=== PATIENT | female | born 1965 | race Two or more races ===

== ENCOUNTER → 2016-09-27 | Outpatient (CLI) | payer BC ==
[2016-09-27 07:23] LABS: Basophils # (auto) 0.1 uL; Basophils % (auto) 0.6 % (0.0-2.0); DEFINITIVE VIEW TRANSMISSION; Eosinophils # (auto) 0.8 uL; Eosinophils % (auto) 7.2 % (0.0-7.0); Hematocrit 42.4 % (36.0-46.0); Hemoglobin 14.1 g/dL (12.2-16.2); Lymphocytes # (auto) 2.4 uL; Lymphocytes % (auto) 21.3 % (10.0-50.0); Mean Corpuscular Hemoglobin 29.9 pg (28.0-32.0); Mean Corpuscular Hgb Conc. 33.2 g/dL (32.0-36.0); Mean Corpuscular Volume 90.1 fL (80.0-100.0); Mean Platelet Volume 8.9 fL (7.4-10.4); Monocytes # (auto) 0.8 uL; Monocytes % (auto) 7.2 % (0.0-12.0); Neutrophils # (auto) 7.2 uL; Neutrophils % (auto) 63.7 % (37.0-80.0); Platelet Count (auto) 343 10^3/uL (140-450); Red Cell Distribution Width 12.9 % (11.6-16.0); White Blood Cell 11.2 10^3/uL (4.4-10.8)
[2016-09-27 07:50] LABS: Albumin 3.3 g/dL (3.4-5.0); BUN/Creatinine Ratio 24.7; Bilirubin, Total 0.4 mg/dL (0.2-1.0); Calcium 8.7 mg/dL (8.5-10.1); Potassium 3.8 mmol/L (3.5-5.1); Total Protein 7.3 g/dL (6.4-8.2)
[2016-09-27 08:04] LABS: Urine Bilirubin Negative (Negative); Urine Blood 2+ /uL (Negative); Urine Color Yellow (Yellow); Urine Glucose Normal (Normal); Urine Ketone Negative (Negative); Urine Mucus FEW (None Seen); Urine Nitrite Negative (Negative); Urine RBC 3 /hpf (0 - 4); Urine Squamous Epithelial Cell FEW /hpf (<5); Urine Urobilinogen Normal (Negative)
== END | disposition home or self-care (01) ==
LOC: LAB 06:39
PROVIDERS: ATTEND Internal Medicine
DX: K21.9 Gastro-esophageal reflux disease without esophagitis (principal); M54.12 Radiculopathy, cervical region
CPT/HCPCS: 36415; 80053; 80061; 81001; 84439; 84443; 85025; 85652

== ENCOUNTER 2016-10-10 07:58 | Emergency (ER) | payer BC ==
[~2016-10-10] VITALS: Ht 160 cm; Wt 100.7 kg
[2016-10-10 08:47] VITALS: BP 142/77
== END 2016-10-10 09:19 | disposition home or self-care (01) ==
LOC: ER 07:58
DX: S83.92XA Sprain of unspecified site of left knee, initial encounter (principal); X58.XXXA Exposure to other specified factors, initial encounter; Y93.89 Activity, other specified; Y99.8 Other external cause status; Y92.89 Other specified places as the place of occurrence of the external cause

== ENCOUNTER → 2016-10-24 | Outpatient (CLI) | payer BC | END | disposition home or self-care (01) | LOC: LAB 13:30 | PROVIDERS: ATTEND Internal Medicine | DX: R20.0 Anesthesia of skin (principal) | CPT/HCPCS: 36415; 82565; 84520 ==

== ENCOUNTER → 2017-02-27 | Outpatient (CLI) | payer BC ==
[2017-02-27 08:56] LABS: Basophils # (auto) 0 uL; Basophils % (auto) 0.3 % (0.0-2.0); CONDITION Y; Eosinophils # (auto) 0.3 uL; Eosinophils % (auto) 3.2 % (0.0-7.0); Hematocrit 40.6 % (36.0-46.0); Hemoglobin 13.7 g/dL (12.2-16.2); Lymphocytes # (auto) 1.8 uL; Lymphocytes % (auto) 20.3 % (10.0-50.0); Mean Corpuscular Hemoglobin 30.5 pg (28.0-32.0); Mean Corpuscular Hgb Conc. 33.8 g/dL (32.0-36.0); Mean Platelet Volume 8.5 fL (6.9-10.8); Monocytes # (auto) 0.6 uL; Monocytes % (auto) 6.8 % (0.0-12.0); Neutrophils # (auto) 6.2 uL; Neutrophils % (auto) 69.4 % (37.0-80.0); Platelet Count (auto) 330 10^3/uL (140-450); Red Cell Distribution Width 13.2 % (11.8-14.3)
[2017-02-27 09:21] LABS: Uric Acid 7.1 mg/dL (2.6-6.0)
[2017-02-28 05:08] LABS: Rheumatoid Arthritis Factor <10.0 IU/mL (0.0-13.9)
== END | disposition home or self-care (01) ==
LOC: LAB 08:27
PROVIDERS: ATTEND Internal Medicine
DX: M25.50 Pain in unspecified joint (principal); E03.9 Hypothyroidism, unspecified
CPT/HCPCS: 36415; 84439; 84443; 84550; 85025; 86038; 86141; 86431

== ENCOUNTER → 2017-03-03 | Outpatient (CLI) | payer BC | END | disposition home or self-care (01) | LOC: LAB 09:24 | PROVIDERS: ATTEND Internal Medicine | DX: M25.50 Pain in unspecified joint (principal) | CPT/HCPCS: 82270 ==

== ENCOUNTER → 2017-05-29 | Outpatient (CLI) | payer BC ==
[2017-05-30 19:06] LABS: Sjogren's Anti-SS-A Antibody 0.2 AI (0.0-0.9)
== END | disposition home or self-care (01) ==
LOC: LAB 13:49
DX: M32.9 Systemic lupus erythematosus, unspecified (principal); M45.0 Ankylosing spondylitis of multiple sites in spine
CPT/HCPCS: 86160; 86225; 86235; 86812

== ENCOUNTER → 2017-07-26 | Outpatient (CLI) | payer BC ==
[2017-07-26 07:40] LABS: Basophils # (auto) 0.1 uL; Basophils % (auto) 0.6 % (0.0-2.0); Eosinophils # (auto) 0.4 uL; Eosinophils % (auto) 4.3 % (0.0-7.0); Hematocrit 41.7 % (36.0-46.0); Hemoglobin 13.9 g/dL (12.2-16.2); Lymphocytes # (auto) 1.9 uL; Lymphocytes % (auto) 18.6 % (10.0-50.0); Mean Corpuscular Hemoglobin 30.5 pg (28.0-32.0); Mean Corpuscular Hgb Conc. 33.4 g/dL (32.0-36.0); Mean Corpuscular Volume 91.2 fL (80.0-100.0); Monocytes # (auto) 0.8 uL; Monocytes % (auto) 7.7 % (0.0-12.0); Neutrophils # (auto) 6.9 uL; Neutrophils % (auto) 68.8 % (37.0-80.0); Platelet Count (auto) 308 10^3/uL (140-450); Red Blood Cells 4.57 10^6/uL (4.0-5.20); Red Cell Distribution Width 12.9 % (11.8-14.3); White Blood Cell 10.1 10^3/uL (4.4-10.8)
[2017-07-26 07:42] LABS: Urine Bacteria NONE SEEN /hpf (None Seen); Urine Blood 1+ /uL (Negative); Urine Mucus FEW (None Seen); Urine Specific Gravity 1.013 (1.001-1.035); Urine WBC 2 /hpf (0 - 5)
[2017-07-26 08:34] LABS: Albumin 3.5 g/dL (3.4-5.0); BUN/Creatinine Ratio 23.2; Bilirubin, Total 0.7 mg/dL (0.2-1.0); Calcium 8.3 mg/dL (8.5-10.1); Potassium 3.6 mmol/L (3.5-5.1); Total Protein 7.3 g/dL (6.4-8.2)
== END | disposition home or self-care (01) ==
LOC: LAB 07:00
PROVIDERS: ATTEND Internal Medicine
DX: E03.9 Hypothyroidism, unspecified (principal); K21.9 Gastro-esophageal reflux disease without esophagitis; R73.01 Impaired fasting glucose
CPT/HCPCS: 36415; 80053; 80061; 81001; 83036; 84439; 84443; 85025; 85652

== ENCOUNTER → 2017-11-21 | Outpatient (CLI) | payer BC | END | disposition home or self-care (01) | LOC: LAB 08:58 | PROVIDERS: ATTEND Obstetrics & Gynecology | DX: E03.9 Hypothyroidism, unspecified (principal); K21.9 Gastro-esophageal reflux disease without esophagitis | CPT/HCPCS: 36415; 84439; 84443 ==

== ENCOUNTER → 2018-04-03 | Outpatient (CLI) | payer BC ==
[2018-04-03 14:56] LABS: Uric Acid 7.5 mg/dL (2.6-6.0)
== END | disposition home or self-care (01) ==
LOC: LAB 13:59
PROVIDERS: ATTEND Internal Medicine
DX: E03.9 Hypothyroidism, unspecified (principal); J30.2 Other seasonal allergic rhinitis; E78.1 Pure hyperglyceridemia
CPT/HCPCS: 36415; 82785; 84439; 84443; 84478; 84550; 86677

== ENCOUNTER → 2018-08-22 | Outpatient (CLI) | payer BC ==
[2018-08-22 07:34] LABS: Urine WBC None Seen /hpf (0 - 5)
[2018-08-22 07:52] LABS: Basophils # (auto) 0.1 uL; Basophils % (auto) 0.7 % (0.0-2.0); Eosinophils # (auto) 0.7 uL; Hematocrit 41.6 % (36.0-46.0); Hemoglobin 13.9 g/dL (12.2-16.2); Lymphocytes # (auto) 1.8 uL; Lymphocytes % (auto) 21.2 % (10.0-50.0); Mean Corpuscular Hemoglobin 30.3 pg (28.0-32.0); Mean Corpuscular Hgb Conc. 33.3 g/dL (32.0-36.0); Mean Corpuscular Volume 90.9 fL (80.0-100.0); Monocytes # (auto) 0.7 uL; Monocytes % (auto) 7.7 % (0.0-12.0); Neutrophils # (auto) 5.3 uL; Neutrophils % (auto) 62.4 % (37.0-80.0); Nucleated Red Blood Cells % 0.1 %; Platelet Count (auto) 301 10^3/uL (140-450); Red Blood Cells 4.58 10^6/uL (4.0-5.20); White Blood Cell 8.5 10^3/uL (4.4-10.8)
[2018-08-22 08:17] LABS: Albumin 3.4 g/dL (3.4-5.0); Calcium 8.4 mg/dL (8.5-10.1); Potassium 3.6 mmol/L (3.5-5.1)
[2018-08-22 08:23] LABS: BUN/Creatinine Ratio 17.7; Bilirubin, Total 0.5 mg/dL (0.2-1.0); Total Protein 7.3 g/dL (6.4-8.2); Uric Acid 5.7 mg/dL (2.6-6.0)
[2018-08-22 08:46] LABS: Urine Bacteria FEW /hpf (None Seen); Urine Blood 2+ /uL (Negative); Urine Mucus FEW (None Seen); Urine Specific Gravity 1.014 (1.001-1.035)
== END | disposition home or self-care (01) ==
LOC: LAB 07:11
PROVIDERS: ATTEND Internal Medicine
DX: E03.9 Hypothyroidism, unspecified (principal); E79.0 Hyperuricemia without signs of inflammatory arthritis and tophaceous disease
CPT/HCPCS: 36415; 80053; 80061; 81001; 84439; 84443; 84550; 85025; 85652

== ENCOUNTER → 2019-04-25 | Outpatient (CLI) | payer BC ==
[2019-04-25 08:09] LABS: Basophils # (auto) 0 uL; Basophils % (auto) 0.5 % (0.0-2.0); Eosinophils # (auto) 0.4 uL; Hematocrit 43.2 % (36.0-46.0); Hemoglobin 14.4 g/dL (12.2-16.2); Lymphocytes # (auto) 1.5 uL; Lymphocytes % (auto) 23.9 % (10.0-50.0); Mean Corpuscular Hemoglobin 30.1 pg (28.0-32.0); Mean Corpuscular Hgb Conc. 33.3 g/dL (32.0-36.0); Mean Corpuscular Volume 90.5 fL (80.0-100.0); Monocytes # (auto) 0.4 uL; Neutrophils # (auto) 4.1 uL; Neutrophils % (auto) 63.6 % (37.0-80.0); Nucleated Red Blood Cells % 0.1 %; Platelet Count (auto) 247 10^3/uL (140-450); Red Blood Cells 4.77 10^6/uL (4.0-5.20); Red Cell Distribution Width 13.1 % (11.8-14.3); White Blood Cell 6.4 10^3/uL (4.4-10.8)
[2019-04-25 08:21] LABS: Albumin 3.6 g/dL (3.4-5.0); Calcium 8.7 mg/dL (8.5-10.1); Potassium 3.5 mmol/L (3.5-5.1)
[2019-04-25 08:24] LABS: BUN/Creatinine Ratio 23.1; Bilirubin, Total 0.6 mg/dL (0.2-1.0); Total Protein 7.2 g/dL (6.4-8.2)
== END | disposition home or self-care (01) ==
LOC: LAB 07:26
PROVIDERS: ATTEND Internal Medicine
DX: E03.9 Hypothyroidism, unspecified (principal); R53.83 Other fatigue; Z90.49 Acquired absence of other specified parts of digestive tract; Z98.51 Tubal ligation status; Z87.19 Personal history of other diseases of the digestive system
CPT/HCPCS: 36415; 80053; 84439; 84443; 85025; 85652

== ENCOUNTER 2019-08-26 07:28 | Emergency (ER) | payer BC, OTHER ==
[~2019-08-26] VITALS: Ht 162.6 cm; Wt 99.8 kg
[2019-08-26 09:22] VITALS: BP 158/92
[2019-08-26] MEDS ORDERED: ACETAMINOPHEN 325 MG TAB PO ONE (09:30)
== END 2019-08-26 10:10 | disposition home or self-care (01) ==
LOC: ER 07:28
DX: S00.03XA Contusion of scalp, initial encounter (principal); W22.8XXA Striking against or struck by other objects, initial encounter; Y93.89 Activity, other specified; Y92.89 Other specified places as the place of occurrence of the external cause; Y99.0 Civilian activity done for income or pay

== ENCOUNTER → 2019-09-11 | Outpatient (CLI) | payer OTHER | END | disposition home or self-care (01) | LOC: LAB 15:59 | PROVIDERS: ATTEND Physician Assistant | DX: Z03.818 Encounter for observation for suspected exposure to other biological agents ruled out (principal) | CPT/HCPCS: C9803; U0003 ==

== ENCOUNTER → 2019-11-25 | Outpatient (CLI) | payer BC ==
[2019-11-25 07:58] LABS: Basophils # (auto) 0.1 10 ^3/uL (0-0.2); Basophils % (auto) 0.7 % (0.0-2.0); Eosinophils # (auto) 0.6 10 ^3/uL (0-0.8); Eosinophils % (auto) 6.8 % (0.0-7.0); Hematocrit 41.9 % (36.0-46.0); Hemoglobin 13.9 g/dL (12.2-16.2); Lymphocytes # (auto) 1.7 10 ^3/uL (0.4-5.4); Lymphocytes % (auto) 20.8 % (10.0-50.0); Mean Corpuscular Hemoglobin 30.3 pg (28.0-32.0); Mean Corpuscular Hgb Conc. 33.2 g/dL (32.0-36.0); Mean Corpuscular Volume 91.3 fL (80.0-100.0); Monocytes # (auto) 0.7 10 ^3/uL (0-1.3); Neutrophils # (auto) 5.3 10 ^3/uL (1.6-8.6); Neutrophils % (auto) 63.7 % (37.0-80.0); Platelet Count (auto) 257 10^3/uL (140-450); Red Blood Cells 4.59 10^6/uL (4.0-5.20); Red Cell Distribution Width 13.1 % (11.8-14.3); White Blood Cell 8.4 10^3/uL (4.4-10.8)
[2019-11-25 08:05] LABS: Urine Bacteria NONE SEEN /hpf (None Seen); Urine Blood 1+ /uL (Negative); Urine Specific Gravity 1.016 (1.001-1.035); Urine WBC 1 /hpf (0 - 5)
[2019-11-25 08:21] LABS: Albumin 3.4 g/dL (3.4-5.0); Calcium 8.3 mg/dL (8.5-10.1); Potassium 3.8 mmol/L (3.5-5.1)
[2019-11-25 08:27] LABS: BUN/Creatinine Ratio 24.4; Bilirubin, Total 0.6 mg/dL (0.2-1.0); Total Protein 7.3 g/dL (6.4-8.2)
== END | disposition home or self-care (01) ==
LOC: LAB 07:06
PROVIDERS: ATTEND Internal Medicine
DX: K21.9 Gastro-esophageal reflux disease without esophagitis (principal); R10.10 Upper abdominal pain, unspecified; E03.9 Hypothyroidism, unspecified
CPT/HCPCS: 36415; 80053; 80061; 81001; 84439; 84443; 85025; 85652; 86301

== ENCOUNTER → 2020-04-22 | Outpatient (CLI) | payer BC | END | disposition home or self-care (01) | LOC: XYW 08:21 | PROVIDERS: ATTEND Internal Medicine | DX: R42 Dizziness and giddiness (principal) | CPT/HCPCS: 93306 ==

== ENCOUNTER → 2020-04-29 | Outpatient (CLI) | payer OTHER ==
[~2020-04-29] MED LIST: LEV25T PO; METO25TA93 PO; OMEP-260 PO
== END | disposition home or self-care (01) ==
LOC: LAB 16:49
PROVIDERS: ATTEND Nurse Practitioner Family
DX: U07.1 COVID-19 (principal)

== ENCOUNTER 2020-05-05 15:19 | Inpatient (IN) | payer BC, OTHER ==
[~2020-05-05] VITALS: Ht 160 cm; Wt 107.0 kg
[2020-05-05] MEDS ORDERED: AZITHROMYCIN 500MG/ 250ML 250 ML IV ONE (15:30)
[2020-05-05] MEDS ORDERED: methylPREDNISolone SOD SUCC 125 MG/2 ML VL IV ONE (15:30)
[2020-05-05] MEDS ORDERED: ASCORBIC ACID 500 MG TAB PO ONE (15:30)
[2020-05-05] MEDS ORDERED: ZINC SULFATE 220mg CAP or TAB PO ONE (15:30)
[2020-05-05 16:08] LABS: Basophils # (auto) 0 10 ^3/uL (0-0.2); Basophils % (auto) 0.3 % (0.0-2.0); Eosinophils # (auto) 0 10 ^3/uL (0-0.8); Eosinophils % (auto) 0.2 % (0.0-7.0); Hematocrit 41.8 % (36.0-46.0); Hemoglobin 13.7 g/dL (12.2-16.2); Lymphocytes # (auto) 1.2 10 ^3/uL (0.4-5.4); Lymphocytes % (auto) 28.8 % (10.0-50.0); Mean Corpuscular Hemoglobin 29.8 pg (28.0-32.0); Mean Corpuscular Hgb Conc. 32.9 g/dL (32.0-36.0); Mean Corpuscular Volume 90.5 fL (80.0-100.0); Monocytes # (auto) 0.4 10 ^3/uL (0-1.3); Monocytes % (auto) 8.6 % (0.0-12.0); Neutrophils # (auto) 2.6 10 ^3/uL (1.6-8.6); Neutrophils % (auto) 62.1 % (37.0-80.0); Nucleated Red Blood Cells % 0.1 %; Platelet Count (auto) 173 10^3/uL (140-450); Red Blood Cells 4.61 10^6/uL (4.0-5.20); Red Cell Distribution Width 13.1 % (11.8-14.3); White Blood Cell 4.2 10^3/uL (4.4-10.8)
[2020-05-05 16:33] LABS: Alanine Aminotransferase 27 U/L (13-56); Albumin 3.1 g/dL (3.4-5.0); Anion Gap 7 (5-15); Aspartate Aminotransferase 28 U/L (15-37); BUN/Creatinine Ratio 13.9; Bilirubin, Total 0.3 mg/dL (0.2-1.0); Blood Urea Nitrogen 11 mg/dL (7-18); CRP High Sensitivity 0.62 mg/dL (< 0.3); Calcium 7.9 mg/dL (8.5-10.1); Carbon Dioxide 28 mmol/L (21-32); Chloride 104 mmol/L (98-107); GFR African American 97 mL/min; GFR Non-African American 80 mL/min; Glucose 109 mg/dL (74-106); Lactate Dehydrogenase 219 U/L (84-246); Potassium 3.2 mmol/L (3.5-5.1); Sodium 139 mmol/L (136-145)
[2020-05-05 16:42] LABS: Alkaline Phosphatase 103 U/L (45-117)
[2020-05-05] MEDS ORDERED: POTASSIUM CHL 20 Meq TABLET PO ONE (17:00)
[2020-05-05] MEDS ORDERED: CALCIUM W/VIT D (600MG/400IU) TAB PO ONE (17:30)
[2020-05-05] MEDS ORDERED: NITROGLYCERIN 0.4 MG SL TAB SL PRN (18:30)
[2020-05-05] MEDS ORDERED: ONDANSETRON HCL 4 MG/2 ML VIAL IV PRN (18:30)
[2020-05-05] MEDS ORDERED: ENOXAPARIN SOD 40 MG/0.4 ML SYRINGE SC ONE (18:30)
[2020-05-05] MEDS ORDERED: DOCUSATE SOD 100 MG CAP PO PRN (18:30)
[2020-05-05] MEDS ORDERED: REMDESIVIR PER PHARMACY IV SCH (18:30)
[2020-05-05] MEDS ORDERED: HYDROcodone-ACET 5/325MG TAB PO PRN (18:30)
[2020-05-05] MEDS ORDERED: METOPROLOL SUCCINATE XL 50 MG TAB PO ONE (18:30)
[2020-05-05] MEDS ORDERED: LORazepam 0.5 MG TAB PO PRN (18:30)
[2020-05-05] MEDS ORDERED: MORPHINE SULF INJ 2 MG/ML SYRINGE 1ML IV PRN ×2 (18:30)
[2020-05-05] MEDS ORDERED: ACETAMINOPHEN 500 MG TAB PO PRN (18:30)
[2020-05-05] MEDS ORDERED: POTASSIUM CHL 20MEQ/100ML 100 ML IV ONE (19:00)
[2020-05-05] MEDS: SODIUM CHLORIDE 0.9% 1,000 ML IV SCH (20:37)
[2020-05-05] MEDS: ALBUTEROL SULF HFA 90MCG INH 200DOSE IN SCH (22:00)
[2020-05-05] MEDS: BUDESONIDE (INHALATION) 180 MCG IH IN SCH (22:00)
[2020-05-05 22:34] LABS: Cholesterol 109 mg/dL (< 200)
[2020-05-05 22:39] LABS: HDL Cholesterol 36 mg/dL (40-59); LDL Cholesterol 62 mg/dL (< 100); Triglycerides 79 mg/dL (< 150)
[2020-05-06] MEDS: DOXYCYCLINE 100MG/250ML 250 ML IV SCH ×3 (01:28→22:02)
[2020-05-06] MEDS: ATORVASTATIN 20 MG TAB PO SCH ×2 (01:28→22:02)
--- NOTE | 2020-05-06 01:30 | NUR ---
MS/TELE admit from ER ROLAND BENJAMIN admitted to tele/MS after SBAR received. Patient oriented to DHAVAL YATES RN, room 201, tele #32 showing SR in the 60's. Pt is on 2L nasal cannula with even and unlabored respirations. Patient weighed by bedscale and encouraged to call if they need something. All questions and concerns addressed, patient verbalized understanding. Bed locked, in lowest position, call light within reach, side rails up x2. Will continue to monitor Q1hr and PRN.
[2020-05-06] MEDS ORDERED: LEV25T PO (04:06)
[2020-05-06] MEDS ORDERED: METO25TA93 PO (04:16)
[2020-05-06] MEDS ORDERED: OMEP-260 PO (04:16)
[2020-05-06 05:00] VITALS: BP 133/68
[2020-05-06 05:56] LABS: Basophils # (auto) 0 10 ^3/uL (0-0.2); Eosinophils # (auto) 0 10 ^3/uL (0-0.8); Eosinophils % (auto) 0.2 % (0.0-7.0); Hematocrit 43.4 % (36.0-46.0); Hemoglobin 13.9 g/dL (12.2-16.2); Lymphocytes # (auto) 0.5 10 ^3/uL (0.4-5.4); Lymphocytes % (auto) 23.6 % (10.0-50.0); Mean Corpuscular Hemoglobin 29.3 pg (28.0-32.0); Mean Corpuscular Volume 91.3 fL (80.0-100.0); Monocytes # (auto) 0.1 10 ^3/uL (0-1.3); Monocytes % (auto) 5.6 % (0.0-12.0); Neutrophils # (auto) 1.4 10 ^3/uL (1.6-8.6); Neutrophils % (auto) 69.6 % (37.0-80.0); Nucleated Red Blood Cells % 0.1 %; Platelet Count (auto) 171 10^3/uL (140-450); Red Blood Cells 4.76 10^6/uL (4.0-5.20); Red Cell Distribution Width 12.8 % (11.8-14.3)
[2020-05-06 06:08] LABS: Calcium 8.3 mg/dL (8.5-10.1); Potassium 3.6 mmol/L (3.5-5.1)
[2020-05-06 06:14] LABS: BUN/Creatinine Ratio 17.1; Bilirubin, Total 0.2 mg/dL (0.2-1.0)
[2020-05-06] MEDS: BUDESONIDE (INHALATION) 180 MCG IH IN SCH ×2 (06:29→21:27)
[2020-05-06] MEDS: ALBUTEROL SULF HFA 90MCG INH 200DOSE IN SCH ×3 (06:29→21:27)
--- NOTE | 2020-05-06 07:30 | NUR ---
RECEIVED REPORT FROM NIGHT NURSE. PATIENT RESTING IN BED, NO DISTRESS NOTED. WILL CONTINUE TO MONITOR.
[2020-05-06 08:05] LABS: Urine Bacteria NONE SEEN /hpf (None Seen); Urine Blood Negative /uL (Negative); Urine Mucus FEW (None Seen); Urine Specific Gravity 1.042 (1.001-1.035); Urine WBC 1 /hpf (0 - 5)
[2020-05-06 08:21] LABS: Alcohol, Urine < 3.0 mg/dL (0-10); Amphetamine Screen, Urine NEGATIVE (NEGATIVE); Barbiturate Scree,Urine NEGATIVE (NEGATIVE); Benzodiazephine Screen, Urine NEGATIVE (NEGATIVE); Cannabinoid Screen, Urine NEGATIVE (NEGATIVE); Cocaine Screen, Urine NEGATIVE (NEGATIVE); Opiate Scree,Urine NEGATIVE (NEGATIVE); Phencyclidine Screen, Urine NEGATIVE (NEGATIVE)
[2020-05-06 09:00] VITALS: BP 147/71
[2020-05-06] MEDS ORDERED: CALCIUM W/VIT D (600MG/400IU) TAB PO SCH (10:00)
[2020-05-06] MEDS ORDERED: ASPirin 81 mg TAB PO SCH (10:00)
[2020-05-06] MEDS ORDERED: POTASSIUM CHL 20 Meq TABLET PO SCH (10:00)
[2020-05-06] MEDS: ASCORBIC ACID 1,000 MG TAB PO SCH (10:44)
[2020-05-06] MEDS: CHOLECALCIFEROL (VITD3) 2,000 UNIT CAP PO SCH (10:44)
[2020-05-06] MEDS: ENOXAPARIN SOD 40 MG/0.4 ML SYRINGE SC SCH (10:46)
[2020-05-06] MEDS: METOPROLOL SUCCINATE XL 50 MG TAB PO SCH (10:46)
[2020-05-06] MEDS: ZINC SULFATE 220mg CAP or TAB PO SCH (10:46)
[2020-05-06] MEDS: DexAMETHasone SOD PHOS 10MG/1ML VIAL INJ IV SCH (10:47)
[2020-05-06] MEDS: SODIUM CHLORIDE 0.9% 1,000 ML IV SCH (11:10)
--- NOTE | 2020-05-06 12:44 | NUR ---
DR. HOWARD AT BEDSIDE.
[2020-05-06 13:00] VITALS: BP 141/74
[2020-05-06] MEDS ORDERED: LEVOTHYROXINE SODIUM 25 MCG TAB PO ONE (13:00)
[2020-05-06] MEDS ORDERED: PANTOPRAZOLE 40 MG TAB PO ONE (13:00)
[2020-05-06 16:53] VITALS: BP 154/74
--- NOTE | 2020-05-06 19:21 | NUR ---
PATIENT CARE ENDORSED TO NIGHT NURSE.
--- NOTE | 2020-05-06 19:40 | NUR ---
Opening Shift Note Assumed care of patient. Awake, alert and oriented x4. No S/S of distress/SOB or pain. Pt is on 2L nasal cannula with even and unlabored respirations. Instructed on POC and to call for assist PRN. Bed locked, in lowest position, call light within reach, side rails up x2. Will continue to monitor for changes Q1hr and PRN.
[2020-05-06 22:00] VITALS: BP 146/84
[2020-05-07 03:57] VITALS: BP 146/84
[2020-05-07 05:00] VITALS: BP 150/74
[2020-05-07] MEDS: ALBUTEROL SULF HFA 90MCG INH 200DOSE IN SCH ×3 (06:01→21:56)
[2020-05-07] MEDS: BUDESONIDE (INHALATION) 180 MCG IH IN SCH ×2 (06:02→21:56)
[2020-05-07] MEDS: LEVOTHYROXINE SODIUM 25 MCG TAB PO SCH (06:25)
[2020-05-07 06:56] LABS: Basophils # (auto) 0 10 ^3/uL (0-0.2); Basophils % (auto) 0.3 % (0.0-2.0); Eosinophils # (auto) 0 10 ^3/uL (0-0.8); Hematocrit 42.2 % (36.0-46.0); Lymphocytes # (auto) 1.4 10 ^3/uL (0.4-5.4); Lymphocytes % (auto) 16.8 % (10.0-50.0); Mean Corpuscular Hemoglobin 30.1 pg (28.0-32.0); Mean Corpuscular Hgb Conc. 33.2 g/dL (32.0-36.0); Mean Corpuscular Volume 90.8 fL (80.0-100.0); Monocytes # (auto) 0.5 10 ^3/uL (0-1.3); Monocytes % (auto) 6.6 % (0.0-12.0); Neutrophils # (auto) 6.2 10 ^3/uL (1.6-8.6); Neutrophils % (auto) 76.3 % (37.0-80.0); Nucleated Red Blood Cells % 0.1 %; Platelet Count (auto) 192 10^3/uL (140-450); Red Blood Cells 4.64 10^6/uL (4.0-5.20); Red Cell Distribution Width 12.9 % (11.8-14.3); White Blood Cell 8.1 10^3/uL (4.4-10.8)
[2020-05-07 07:14] LABS: Calcium 8.1 mg/dL (8.5-10.1); Potassium 3.8 mmol/L (3.5-5.1)
[2020-05-07 07:16] LABS: BUN/Creatinine Ratio 18.7
--- NOTE | 2020-05-07 08:20 | NUR ---
OPENING SHIFT NOTE: PATIENT RESTING IN BED AWAKE. A/OX4 EATING BREAKFAST. NOTED LARGE HABITUS, PITTING EDEMA +2 TO BILATERAL LOWER EXTREMITIES. LUNG SOUNDS CLEAR DIMINISHED ON NASAL CANNULA. PATIENT UPDATED ON PLAN OF CARE. FALL PRECAUTIONS IN PLACE. CALL LIGHT WITHIN REACH, WILL CONTINUE TO MONITOR.
[2020-05-07] MEDS: DexAMETHasone SOD PHOS 10MG/1ML VIAL INJ IV SCH (08:35)
[2020-05-07] MEDS: ZINC SULFATE 220mg CAP or TAB PO SCH (08:35)
[2020-05-07] MEDS: PANTOPRAZOLE 40 MG TAB PO SCH (08:36)
[2020-05-07] MEDS: ENOXAPARIN SOD 40 MG/0.4 ML SYRINGE SC SCH (08:36)
[2020-05-07] MEDS: ASCORBIC ACID 1,000 MG TAB PO SCH (08:36)
[2020-05-07] MEDS: CHOLECALCIFEROL (VITD3) 2,000 UNIT CAP PO SCH (08:36)
[2020-05-07] MEDS: DOXYCYCLINE 100MG/250ML 250 ML IV SCH ×2 (08:37→21:28)
[2020-05-07] MEDS: METOPROLOL SUCCINATE XL 50 MG TAB PO SCH (08:38)
[2020-05-07] MEDS: ACETAMINOPHEN 325 MG TAB PO PRN ×2 (08:41→22:33)
[2020-05-07 09:00] VITALS: BP 133/71
--- NOTE | 2020-05-07 11:24 | NUR ---
O2 TITRATED DOWN TO 2LNC. SATS 93% SPO2.
[2020-05-07 13:00] VITALS: BP 138/70
--- NOTE | 2020-05-07 14:00 | NUR ---
AMBULATING O2: PATIENT AMBULATING AROUND UNIT ON ROOM AIR O2 SAT LOWEST 87%SPO2 PATIENT WALKED AROUND ENTIRE UNIT AND AVERAGED 90%SPO2, REPORTED RELIEF WHEN SHE SAT DOWN IN A CHAIR AFTER, AND REMAINED ON ROOM AIR.
[2020-05-07 17:00] VITALS: BP 136/65
--- NOTE | 2020-05-07 19:17 | NUR ---
CARE ENDORSED TO TEE POTTER.
--- NOTE | 2020-05-07 19:20 | NUR ---
Openning note Assumed care of patient. Patient is alert and orientated x4. No sob or distress noted at this time. Patient is Hungarian speaking. All questions answered at this time. Bed is locked in lowest position, side rails up x2. Patient is able to ambulate with stand by assist to the bathroom and turns self. Will continue to monitor q1hr and PRN.
[2020-05-07 21:28] VITALS: BP 154/72
[2020-05-07] MEDS: ATORVASTATIN 20 MG TAB PO SCH (21:28)
--- NOTE | 2020-05-07 23:00 | NUR ---
IV removal IV DC'd with sterile technique, IV infiltrated, catheter fully intact. Pressure dressing applied to site. Patient tolerated procedure well.
--- NOTE | 2020-05-08 00:10 | NUR ---
IV insertion IV access obtained, via clean sterile technique by inserting 20 gauge catheter at right forearm after 2 attempt(s). IV secured properly. No trauma to site. Patient tolerated well
[2020-05-08] MEDS: ALUM & MAG HYDROX-SIMETH LIQ(MAALOX) 30 ML PO PRN ×2 (02:06→19:45)
[2020-05-08 04:50] VITALS: BP 141/72
[2020-05-08] MEDS: LEVOTHYROXINE SODIUM 25 MCG TAB PO SCH (06:27)
[2020-05-08] MEDS: ALBUTEROL SULF HFA 90MCG INH 200DOSE IN SCH ×3 (07:08→22:42)
[2020-05-08] MEDS: BUDESONIDE (INHALATION) 180 MCG IH IN SCH ×2 (07:08→22:42)
--- NOTE | 2020-05-08 07:30 | NUR ---
Opening Shift Note Assumed patient care from NOC RN. Patient currently out of bed and sitting up in chair; no signs of distress at this time. Patient currently on 1L nasal cannula. Safety precautions are in place, patient is AOx4. Patient agreeable to ambulating in hallway on room air after med pass. Will continue to monitor q1hr and PRN.
[2020-05-08 08:54] VITALS: BP 119/67
[2020-05-08] MEDS: METOPROLOL SUCCINATE XL 50 MG TAB PO SCH (09:18)
[2020-05-08] MEDS: PANTOPRAZOLE 40 MG TAB PO SCH (09:18)
[2020-05-08] MEDS: DexAMETHasone SOD PHOS 10MG/1ML VIAL INJ IV SCH (09:18)
[2020-05-08] MEDS: ASCORBIC ACID 1,000 MG TAB PO SCH (09:19)
[2020-05-08] MEDS: ENOXAPARIN SOD 40 MG/0.4 ML SYRINGE SC SCH (09:19)
[2020-05-08] MEDS: CHOLECALCIFEROL (VITD3) 2,000 UNIT CAP PO SCH (09:19)
[2020-05-08] MEDS: ZINC SULFATE 220mg CAP or TAB PO SCH (10:41)
[2020-05-08] MEDS: DOXYCYCLINE 100MG/250ML 250 ML IV SCH (10:41)
[2020-05-08] MEDS: ACETAMINOPHEN 325 MG TAB PO PRN (10:41)
--- NOTE | 2020-05-08 10:44 | NUR ---
Pain Patient reports generalized body aches/pain. Patient requesting Tylenol at this time. Patient assisted with repositioning; pain medication administered, see EMAR. Addendum: 05/08/20 at 1112 by JUAN FRANCISCO SANTOYO RN RN Safety precautions in place, call light within reach. Will continue to monitor q1hr and PRN.
--- NOTE | 2020-05-08 12:15 | NUR ---
IV Right forearm IV discontinued due to signs of infiltration. Pressure dressing applied, catheter intact. Patient educated on need for new IV. Per patient, currently refusing new IV as she will possibly be discharged. Spoke with pharmacist regarding infiltration of Doxycycline. Per Delmy, place warm compress to affected area. Addendum: 05/08/20 at 1228 by JUAN FRANCISCO SANTOYO RN RN warm compress applied to site. Addendum: 05/08/20 at 1815 by JUAN FRANCISCO SANTOYO RN RN Update: Patient experiencing decreased swelling and tenderness at site; currently denies pain at site.
[2020-05-08 12:46] VITALS: BP 138/74
--- NOTE | 2020-05-08 14:00 | NUR ---
IS Patient provided with incentive spirometer. Patient educated on use and benefits. Patient verbalized understanding and returned demonstration; encouraged to use frequently.
--- NOTE | 2020-05-08 16:00 | NUR ---
Called Spoke with Dr. Parks: made aware of IV status; per , no new IV needed at this time. Addendum: 05/08/20 at 1603 by JUAN FRANCISCO SANTOYO RN RN See ANNI for orders
[2020-05-08 16:36] VITALS: BP 147/78
--- NOTE | 2020-05-08 18:59 | NUR ---
Closing Shift Note Endorsed care to NOC Radha POTTER.
--- NOTE | 2020-05-08 19:10 | NUR ---
Opening note Assumed care of patient, patient is alert and orientated x4. No sob or distress noted. Patient is resting in bed. POC discussed. Patient verbalized understanding. Bed is locked in lowest position side rails up x2. Will continue to monitor q1hr and prn.
[2020-05-08] MEDS: DOXYCYCLINE 100 MG TAB/CAP PO SCH (20:47)
[2020-05-08] MEDS: ATORVASTATIN 20 MG TAB PO SCH (20:47)
[2020-05-08 22:08] VITALS: BP 128/54
[2020-05-09 05:06] VITALS: BP 119/56
[2020-05-09] MEDS: BUDESONIDE (INHALATION) 180 MCG IH IN SCH (06:00)
[2020-05-09] MEDS: ALBUTEROL SULF HFA 90MCG INH 200DOSE IN SCH ×2 (06:00→13:44)
[2020-05-09] MEDS: LEVOTHYROXINE SODIUM 25 MCG TAB PO SCH (06:08)
[2020-05-09] MEDS: ACETAMINOPHEN 325 MG TAB PO PRN (06:09)
[2020-05-09 07:31] LABS: Basophils # (auto) 0 10 ^3/uL (0-0.2); Eosinophils # (auto) 0 10 ^3/uL (0-0.8); Lymphocytes # (auto) 0.8 10 ^3/uL (0.4-5.4); Lymphocytes % (auto) 10.7 % (10.0-50.0); Mean Corpuscular Hemoglobin 29.9 pg (28.0-32.0); Mean Corpuscular Hgb Conc. 32.5 g/dL (32.0-36.0); Mean Corpuscular Volume 91.8 fL (80.0-100.0); Monocytes # (auto) 0.4 10 ^3/uL (0-1.3); Monocytes % (auto) 4.7 % (0.0-12.0); Neutrophils # (auto) 6.3 10 ^3/uL (1.6-8.6); Neutrophils % (auto) 84.6 % (37.0-80.0); Nucleated Red Blood Cells % 0.1 %; Platelet Count (auto) 181 10^3/uL (140-450); Red Blood Cells 4.68 10^6/uL (4.0-5.20); Red Cell Distribution Width 13.4 % (11.8-14.3); White Blood Cell 7.5 10^3/uL (4.4-10.8)
[2020-05-09 07:50] LABS: Calcium 8.3 mg/dL (8.5-10.1); Potassium 3.7 mmol/L (3.5-5.1)
[2020-05-09 07:56] LABS: Albumin 2.9 g/dL (3.4-5.0); BUN/Creatinine Ratio 30.8; Bilirubin, Total 0.4 mg/dL (0.2-1.0); Total Protein 6.9 g/dL (6.4-8.2)
[2020-05-09 08:36] VITALS: BP 112/70
[2020-05-09] MEDS: ZINC SULFATE 220mg CAP or TAB PO SCH (09:18)
[2020-05-09] MEDS: ENOXAPARIN SOD 40 MG/0.4 ML SYRINGE SC SCH (09:19)
[2020-05-09] MEDS: PANTOPRAZOLE 40 MG TAB PO SCH (09:19)
[2020-05-09] MEDS: DOXYCYCLINE 100 MG TAB/CAP PO SCH (09:19)
[2020-05-09] MEDS: DexAMETHasone SOD PHOS 10MG/1ML VIAL INJ IV SCH (09:19)
[2020-05-09] MEDS: CHOLECALCIFEROL (VITD3) 2,000 UNIT CAP PO SCH (09:19)
[2020-05-09] MEDS: ASCORBIC ACID 1,000 MG TAB PO SCH (09:20)
[2020-05-09] MEDS: METOPROLOL SUCCINATE XL 50 MG TAB PO SCH (09:20)
--- NOTE | 2020-05-09 10:59 | NUR ---
Nutrition Assessment Notes Please refer to link for full assessment notes. Est Energy needs: [id number] kcals (12-15 kcal/kgBW) Est Protein needs: 104-130 gms/day (2.0-2.5 gm/kgIBW of 52kg) Will continue to monitor and reassess prn. Addendum: 05/09/20 at [address] RD Amended: Links added.
[2020-05-09 12:53] VITALS: BP 118/61
--- NOTE | 2020-05-09 14:15 | NUR ---
ROUNDING MD Nelli HOWARD AT BEDSIDE. ALL QUESTIONS AND CONCERNS ADDRESSED AT THIS TIME
[2020-05-09] MEDS ORDERED: POTASSIUM CHL 20 Meq TABLET PO ONE (14:45)
[2020-05-09] MEDS ORDERED: FUROSEMIDE 20 MG/2 ML VIAL IV ONE (14:45)
--- NOTE | 2020-05-09 15:00 | NUR ---
PAGED [facility] RE: PENDING DISCHARGE WITH HOME OXYGEN
--- NOTE | 2020-05-09 15:07 | NUR ---
[facility] RETURNED PAGE [id number] STATES "OKAY I WILL FAX SOME STUFF OVER AND GIVE YOU A CALL BACK"
--- NOTE | 2020-05-09 15:15 | NUR ---
CALLED IN [facility] [address], [id number] SPOKE WITH JOSE
--- NOTE | 2020-05-09 15:26 | NUR ---
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 I faxed home oxygen order to [facility].
[2020-05-09] MEDS ORDERED: FUROSEMIDE 20 MG TAB PO ONE (16:00)
[2020-05-09 16:43] VITALS: BP 123/68
[2020-05-09 17:02] VITALS: BP 116/87
--- NOTE | 2020-05-09 17:07 | NUR ---
I spoke with Rebekah at ([phone]) regarding home oxygen, she said it will be delivered this evening, unable to give me an ETA at this time-I relayed this information to nurse Juan.
--- NOTE | 2020-05-09 17:13 | NUR ---
CALL PLACED TO [facility] RE: PENDING OXYGEN DROP OFF. PER [facility] [employer] [facility] PROVIDING OXYGEN WILL BE [facility] [phone] NO ETA AT THIS TIME.
--- NOTE | 2020-05-09 17:15 | NUR ---
CALL PLACE TO [facility] RE: [facility] OXYGEN DROP-OFF PER ADULT MINISTRIES DIRECTOR THEY "WILL PAGE BUSINESS ADMINISTRATION INSTRUCTOR TO CALL AND UPDATE WITH ETA"
[2020-05-09 19:43] VITALS: BP 123/68
--- NOTE | 2020-05-09 20:35 | NUR ---
Discharge Pt discharged home with all discharge paperwork. Tele box, IV removed. No S/S of distress, pain or SOB at this time. All questions and concerns addressed. Pt verbalized understanding
== END 2020-05-09 20:35 | disposition home or self-care (01) | DRG 871 ==
LOC: EEVIPCON 15:19 → ER 15:19 → TELE 18:30 → TELE-CENTR 23:49
PROVIDERS: ADMIT Hospitalist; ATTEND Internal Medicine
DX: A41.89 Other specified sepsis (principal); J96.01 Acute respiratory failure with hypoxia; J12.89 Other viral pneumonia; U07.1 COVID-19; Z68.41 Body mass index [BMI] 40.0-44.9, adult; E03.9 Hypothyroidism, unspecified; E66.01 Morbid (severe) obesity due to excess calories; E78.5 Hyperlipidemia, unspecified; E87.6 Hypokalemia; I10 Essential (primary) hypertension; K21.9 Gastro-esophageal reflux disease without esophagitis; K29.70 Gastritis, unspecified, without bleeding; M19.90 Unspecified osteoarthritis, unspecified site; Z79.899 Other long term (current) drug therapy; Z90.49 Acquired absence of other specified parts of digestive tract; Z98.51 Tubal ligation status
CPT/HCPCS: 36415; 36600; 71045; 71275; 80048; 80053; 80061; 80307; 81001; 82728; 82805; 83036; 83605; 83615; 83735; 84443; 84484; 85025; 85379; 86141; 87040; 87086; 94640; 99291; G0378; J1100; J3490

== ENCOUNTER 2020-05-13 15:21 | Inpatient (IN) | payer BC ==
[~2020-05-13] VITALS: Ht 160 cm; Wt 106.2 kg
[2020-05-13] MEDS ORDERED: MORPHINE SULF INJ 2 MG/ML SYRINGE 1ML IV PRN ×2 (15:30)
[2020-05-13] MEDS ORDERED: ONDANSETRON HCL 4 MG/2 ML VIAL IV PRN (15:30)
[2020-05-13] MEDS ORDERED: REMDESIVIR PER PHARMACY IV SCH (15:30)
[2020-05-13] MEDS ORDERED: ACETAMINOPHEN 500 MG TAB PO PRN ×2 (15:30)
[2020-05-13] MEDS ORDERED: NITROGLYCERIN 0.4 MG SL TAB SL PRN (15:30)
[2020-05-13 16:19] LABS: Basophils # (auto) 0 10 ^3/uL (0-0.2); Basophils % (auto) 0.1 % (0.0-2.0); Eosinophils # (auto) 0.1 10 ^3/uL (0-0.8); Eosinophils % (auto) 0.8 % (0.0-7.0); Hematocrit 41.1 % (36.0-46.0); Hemoglobin 13.5 g/dL (12.2-16.2); Lymphocytes # (auto) 0.7 10 ^3/uL (0.4-5.4); Lymphocytes % (auto) 9.4 % (10.0-50.0); Mean Corpuscular Hemoglobin 29.6 pg (28.0-32.0); Mean Corpuscular Hgb Conc. 32.8 g/dL (32.0-36.0); Mean Corpuscular Volume 90.4 fL (80.0-100.0); Monocytes # (auto) 0.4 10 ^3/uL (0-1.3); Monocytes % (auto) 5.2 % (0.0-12.0); Neutrophils # (auto) 6.5 10 ^3/uL (1.6-8.6); Neutrophils % (auto) 84.5 % (37.0-80.0); Platelet Count (auto) 306 10^3/uL (140-450); Red Blood Cells 4.55 10^6/uL (4.0-5.20); White Blood Cell 7.7 10^3/uL (4.4-10.8)
[2020-05-13 16:33] LABS: Albumin 2.6 g/dL (3.4-5.0); BUN/Creatinine Ratio 13.6; Calcium 8.1 mg/dL (8.5-10.1); Magnesium 1.8 mg/dL (1.6-2.6); Potassium 3.7 mmol/L (3.5-5.1)
[2020-05-13 17:16] LABS: Bilirubin, Total 0.5 mg/dL (0.2-1.0); CRP High Sensitivity 10.3 mg/dL (< 0.3); Total Protein 7.4 g/dL (6.4-8.2)
[2020-05-13] MEDS: BUDESONIDE (INHALATION) 180 MCG IH IN SCH (22:00)
[2020-05-13] MEDS: ALBUTEROL SULF HFA 90MCG INH 200DOSE IN SCH (22:00)
--- NOTE | 2020-05-13 22:47 | NUR ---
Respiratory note: MDI AND DPI NOT GIVEN DUE TO PHARMACY BEING CLOSED. WILL INFORM DAY SHIFT RT. WILL CONTINUE TO MONITOR.
[2020-05-13 23:52] VITALS: BP 147/77
--- NOTE | 2020-05-14 00:30 | NUR ---
IV insertion IV access obtained, via clean sterile technique by inserting 22 gauge catheter at right upper arm after 1 attempt. IV secured properly. No trauma to site. Patient tolerated well.
[2020-05-14] MEDS: ENOXAPARIN SOD 40 MG/0.4 ML SYRINGE SC SCH ×3 (00:45→22:38)
[2020-05-14 05:00] VITALS: BP 127/69
[2020-05-14] MEDS: BUDESONIDE (INHALATION) 180 MCG IH IN SCH ×3 (06:13→20:33)
[2020-05-14] MEDS: ALBUTEROL SULF HFA 90MCG INH 200DOSE IN SCH (06:13)
--- NOTE | 2020-05-14 06:38 | NUR ---
END OF SHIFT NOTES WILL ENDORSE CARE TO DAY SHIFT RN ,NO S/S OF DISTRESS OR SOB
[2020-05-14 08:29] VITALS: BP 123/67
[2020-05-14] MEDS: cefTRIAXone 1GM/50ML D5W 50 ML IV SCH (09:12)
[2020-05-14] MEDS: CHOLECALCIFEROL (VITD3) 2,000 UNIT CAP PO SCH (09:12)
[2020-05-14] MEDS: ASCORBIC ACID 1,000 MG TAB PO SCH (09:13)
[2020-05-14] MEDS: ZINC SULFATE 220mg CAP or TAB PO SCH (09:13)
[2020-05-14] MEDS: DexAMETHasone SOD PHOS 10MG/1ML VIAL INJ IV SCH (09:14)
[2020-05-14] MEDS ORDERED: FAMOTIDINE 20 MG TAB PO SCH (10:00)
[2020-05-14] MEDS: AZITHROMYCIN 500MG/D5WorNS 250ml IV SCH (10:30)
[2020-05-14 10:51] LABS: Basophils # (auto) 0 10 ^3/uL (0-0.2); Basophils % (auto) 0.1 % (0.0-2.0); Eosinophils # (auto) 0 10 ^3/uL (0-0.8); Eosinophils % (auto) 0.6 % (0.0-7.0); Hematocrit 37.5 % (36.0-46.0); Hemoglobin 12.4 g/dL (12.2-16.2); Lymphocytes # (auto) 0.8 10 ^3/uL (0.4-5.4); Lymphocytes % (auto) 11.1 % (10.0-50.0); Mean Corpuscular Hemoglobin 29.9 pg (28.0-32.0); Mean Corpuscular Hgb Conc. 33.2 g/dL (32.0-36.0); Mean Corpuscular Volume 90.3 fL (80.0-100.0); Monocytes # (auto) 0.5 10 ^3/uL (0-1.3); Monocytes % (auto) 6.9 % (0.0-12.0); Neutrophils # (auto) 6.2 10 ^3/uL (1.6-8.6); Neutrophils % (auto) 81.3 % (37.0-80.0); Platelet Count (auto) 293 10^3/uL (140-450); Red Blood Cells 4.16 10^6/uL (4.0-5.20); Red Cell Distribution Width 12.9 % (11.8-14.3); White Blood Cell 7.6 10^3/uL (4.4-10.8)
[2020-05-14 11:25] LABS: Albumin 2.3 g/dL (3.4-5.0); Calcium 8.2 mg/dL (8.5-10.1); Potassium 3.5 mmol/L (3.5-5.1)
[2020-05-14 11:28] LABS: BUN/Creatinine Ratio 15.2; Bilirubin, Total 0.8 mg/dL (0.2-1.0); Total Protein 6.9 g/dL (6.4-8.2)
--- NOTE | 2020-05-14 12:00 | NUR ---
Patient titrated down to 8l Oxymizer saturation 95%. Addendum: 05/14/20 at 1339 by MAKENZIE AGUILAR RN RN wrong patient
[2020-05-14 13:00] VITALS: BP 153/86
[2020-05-14] MEDS ORDERED: MORPHINE SULF INJ 2 MG/ML SYRINGE 1ML IV PRN (13:00)
[2020-05-14] MEDS ORDERED: PANTOPRAZOLE 40 MG/10 ML VIAL INJ IV ONE (13:00)
[2020-05-14] MEDS ORDERED: metroNIDAZOLE 500MG/100ML 100 ML IV SCH (14:00)
[2020-05-14] MEDS: HYDROcodone-ACET 5/325MG TAB PO PRN (14:38)
[2020-05-14] MEDS: metroNIDAZOLE 500MG/100ML 100 ML IV SCH ×2 (15:00→22:39)
--- NOTE | 2020-05-14 15:28 | NUR ---
patient taken down to CT.
--- NOTE | 2020-05-14 15:50 | NUR ---
patient back from CT
[2020-05-14 16:27] VITALS: BP 139/78
[2020-05-14] MEDS ORDERED: REMDESIVIR 200 MG in NS 210ml LOADING DOSE ADULT IV ONE (18:30)
--- NOTE | 2020-05-14 18:30 | NUR ---
Covid swab sent to lab
--- NOTE | 2020-05-14 19:00 | NUR ---
Remdesivir medication endorsed to noc ABBEY Adrian.
[2020-05-14 21:44] LABS: Urine Bacteria FEW /hpf (None Seen); Urine Blood Negative /uL (Negative); Urine WBC <1 /hpf (0 - 5)
[2020-05-14 22:00] VITALS: BP 155/78
--- NOTE | 2020-05-14 22:25 | NUR ---
REMDESIVIR INFUSION ENDED REMDESIVIR INFUSION ENDED AT THIS TIME. PT TOLERATED WELL, NO NAUSEA/VOMIT/FEVER/CHILLS REPORTED. PRE V/S: HR-76,B/P-155/78,O2 SAT 96%,RR-18,TEMP- 98.8 V/S 15 MIN AFTER ADMINISTRATION: HR-74,B/P-158/78,O2 SAT 94%,RR-18,TEMP- 98.7 V/S POST INFUSION: HR-62 ,B/P-156/89,O2 SAT 94%,RR-19,TEMP- 97.9
--- NOTE | 2020-05-14 22:54 | NUR ---
Respiratory note: NO MDI TX GIVEN, NO MDI AT BEDSIDE. WAS NOT TOLD IN REPORT THAT PT DID NOT HAVE MDI'S. PHARMACY CLOSED AT THIS TIME.
[2020-05-15 05:14] VITALS: BP 139/75
[2020-05-15] MEDS: metroNIDAZOLE 500MG/100ML 100 ML IV SCH ×3 (05:24→22:16)
--- NOTE | 2020-05-15 06:41 | NUR ---
END OF SHIFT NOTES WILL ENDORSE CARE TO DAY SHIFT RN ,NO S/S OF DISTRESS OR SOB
--- NOTE | 2020-05-15 07:30 | NUR ---
Opening Shift Note Assumed patient care from NOC RN. No signs of distress at this time. Respirations even and unlabored. Safety precautions in place, call light within reach. Will continue to monitor q1hr and PRN.
[2020-05-15 09:00] VITALS: BP 143/77
[2020-05-15] MEDS: cefTRIAXone 1GM/50ML D5W 50 ML IV SCH (09:22)
[2020-05-15] MEDS: DexAMETHasone SOD PHOS 10MG/1ML VIAL INJ IV SCH (09:22)
[2020-05-15] MEDS: PANTOPRAZOLE 40 MG/10 ML VIAL INJ IV SCH (09:23)
[2020-05-15] MEDS: ENOXAPARIN SOD 40 MG/0.4 ML SYRINGE SC SCH ×2 (09:23→22:16)
[2020-05-15] MEDS: ASCORBIC ACID 1,000 MG TAB PO SCH (09:23)
[2020-05-15] MEDS: CHOLECALCIFEROL (VITD3) 2,000 UNIT CAP PO SCH (09:23)
[2020-05-15] MEDS: ZINC SULFATE 220mg CAP or TAB PO SCH (09:23)
[2020-05-15] MEDS: AZITHROMYCIN 500MG/D5WorNS 250ml IV SCH (10:00)
[2020-05-15] MEDS: BUDESONIDE (INHALATION) 180 MCG IH IN SCH ×2 (10:15→21:41)
[2020-05-15 10:53] LABS: Basophils # (auto) 0 10 ^3/uL (0-0.2); Basophils % (auto) 0.1 % (0.0-2.0); Eosinophils # (auto) 0 10 ^3/uL (0-0.8); Eosinophils % (auto) 0.1 % (0.0-7.0); Hematocrit 36.5 % (36.0-46.0); Hemoglobin 12.1 g/dL (12.2-16.2); Lymphocytes # (auto) 0.7 10 ^3/uL (0.4-5.4); Lymphocytes % (auto) 8.2 % (10.0-50.0); Mean Corpuscular Hemoglobin 29.5 pg (28.0-32.0); Mean Corpuscular Hgb Conc. 33.1 g/dL (32.0-36.0); Mean Corpuscular Volume 89.2 fL (80.0-100.0); Monocytes # (auto) 0.7 10 ^3/uL (0-1.3); Monocytes % (auto) 8.1 % (0.0-12.0); Neutrophils # (auto) 6.9 10 ^3/uL (1.6-8.6); Neutrophils % (auto) 83.5 % (37.0-80.0); Platelet Count (auto) 368 10^3/uL (140-450); Red Blood Cells 4.09 10^6/uL (4.0-5.20); Red Cell Distribution Width 12.6 % (11.8-14.3); White Blood Cell 8.3 10^3/uL (4.4-10.8)
[2020-05-15 11:11] LABS: BUN/Creatinine Ratio 21.1; Calcium 8.4 mg/dL (8.5-10.1); Potassium 3.6 mmol/L (3.5-5.1)
--- NOTE | 2020-05-15 11:20 | NUR ---
at Station Dr. Parks at station. No new orders at this time. Will follow up with pending convalescent plasma orders.
--- NOTE | 2020-05-15 12:00 | NUR ---
Called Pharmacy Called pharmacy regarding Zithromax, lc Fry, will send up medication.
--- NOTE | 2020-05-15 12:13 | NUR ---
Called Blood Bank Per Betzaida: Patient is O positive pending delivery. Pending [place] delivery of convalescent plasma.
[2020-05-15] MEDS ORDERED: METOPROLOL SUCCINATE XL 50 MG TAB PO ONE (12:30)
[2020-05-15] MEDS ORDERED: LEVOTHYROXINE SODIUM 25 MCG TAB PO ONE (12:30)
[2020-05-15 13:00] VITALS: BP 129/81
[2020-05-15] MEDS: ALBUTEROL SULF HFA 90MCG INH 200DOSE IN PRN ×2 (14:07→21:41)
[2020-05-15 17:00] VITALS: BP 133/64
--- NOTE | 2020-05-15 17:30 | NUR ---
Stool Sample Stool sample sent to lab.
[2020-05-15] MEDS: REMDESIVIR 100 MG in SODIUM CHL 0.9% 250 ML IV SCH (17:36)
[2020-05-15] MEDS: HYDROcodone-ACET 5/325MG TAB PO PRN (17:39)
--- NOTE | 2020-05-15 17:39 | NUR ---
Pain Patient complains of 8/10 abdominal pain at this time. Per patient, prefers Weston over Morphine saying Morphine makes her feel worse. See EMAR.
--- NOTE | 2020-05-15 17:48 | NUR ---
Remdesivir Medication administration starting BP 134/70, HR 64. Addendum: 05/15/20 at 1902 by JUAN FRANCISCO SANTOYO RN RN 15 minute reassessment: 144/83 HR 62 End: 141/83 HR 67
--- NOTE | 2020-05-15 19:22 | NUR ---
Closing Shift Note Endorsed care to NOC RNMinnie.
[2020-05-15 21:59] VITALS: BP 114/64
[2020-05-16] VITALS (8 sets, daily range): BP systolic 125–148; BP diastolic 66–77
[2020-05-16] MEDS: metroNIDAZOLE 500MG/100ML 100 ML IV SCH (06:41)
[2020-05-16] MEDS: LEVOTHYROXINE SODIUM 25 MCG TAB PO SCH (06:41)
[2020-05-16] MEDS: BUDESONIDE (INHALATION) 180 MCG IH IN SCH ×2 (06:45→18:41)
--- NOTE | 2020-05-16 07:30 | NUR ---
Opening Shift Assumed patient care from [facility] RN. Patient currently sitting up in bed, no signs of distress at this time. Safety precautions in place, will continue to monitor q1hr and PRN.
[2020-05-16] MEDS: DexAMETHasone SOD PHOS 10MG/1ML VIAL INJ IV SCH (09:03)
[2020-05-16] MEDS: cefTRIAXone 1GM/50ML D5W 50 ML IV SCH (09:03)
[2020-05-16] MEDS: PANTOPRAZOLE 40 MG/10 ML VIAL INJ IV SCH (09:03)
[2020-05-16] MEDS: ZINC SULFATE 220mg CAP or TAB PO SCH (09:04)
[2020-05-16] MEDS: ASCORBIC ACID 1,000 MG TAB PO SCH (09:04)
[2020-05-16] MEDS: FLORASTOR (S. BOULARDII) 250 MG CAP PO SCH (09:04)
[2020-05-16] MEDS: ENOXAPARIN SOD 40 MG/0.4 ML SYRINGE SC SCH ×2 (09:05→21:24)
[2020-05-16] MEDS: CHOLECALCIFEROL (VITD3) 2,000 UNIT CAP PO SCH (09:05)
[2020-05-16] MEDS ORDERED: METOPROLOL SUCCINATE XL 50 MG TAB PO SCH (10:00)
[2020-05-16 10:34] LABS: Potassium 3.6 mmol/L (3.5-5.1)
[2020-05-16 10:41] LABS: BUN/Creatinine Ratio 20.9; Calcium 8.4 mg/dL (8.5-10.1)
--- NOTE | 2020-05-16 11:00 | NUR ---
IS Incentive spirometer at bedside. Patient encouraged to continue with use as well as benefits; patient verbalized understanding.
[2020-05-16] MEDS: AZITHROMYCIN 500MG/D5WorNS 250ml IV SCH (11:17)
--- NOTE | 2020-05-16 12:19 | NUR ---
Family Spoke with patient's daughter, password confirmed. Updated on patient's plan of care.
[2020-05-16] MEDS: REMDESIVIR 100 MG in SODIUM CHL 0.9% 250 ML IV SCH (17:22)
--- NOTE | 2020-05-16 17:50 | NUR ---
Remdesivir Medication Administration per orders. Starting BP 144/79 HR 59 15minute reassessment: 140/87 HR 52.
[2020-05-16] MEDS: CHOLESTYRAMINE 4 GM POWDER PO SCH ×2 (17:55→21:24)
--- NOTE | 2020-05-16 18:01 | NUR ---
Blood Bank Notified blood bank regarding Plasma. Per blood bank, plasma to be endorsed to NORAH RN due to Remdesivir administration at this time.
--- NOTE | 2020-05-16 19:27 | NUR ---
Closing Shift Note Endorsed care to NOC RNJm. RN aware of patient's current Remdesivir administration and pending plasma ready in blood bank.
--- NOTE | 2020-05-16 19:30 | NUR ---
Opening Shift Note Assumed care of patient, awake and alert. No S/S of distress/SOB. Pain management discussed with the patient. Instructed on POC and to call for assist PRN, will continue to monitor for changes Q1hr and PRN.
[2020-05-16] MEDS: ALBUTEROL SULF HFA 90MCG INH 200DOSE IN PRN (20:16)
[2020-05-16] MEDS: HYDROcodone-ACET 5/325MG TAB PO PRN (20:52)
[2020-05-17] VITALS (7 sets, daily range): BP systolic 133–148; BP diastolic 70–81
--- NOTE | 2020-05-17 01:31 | NUR ---
plasma transfusion complete. patient tolerated well. no signs or symptoms of transfusion reaction or adverse effects.
[2020-05-17] MEDS: CHOLESTYRAMINE 4 GM POWDER PO SCH ×4 (06:00→22:02)
[2020-05-17] MEDS: LEVOTHYROXINE SODIUM 25 MCG TAB PO SCH (07:01)
--- NOTE | 2020-05-17 07:30 | NUR ---
Opening Shift Note Assumed patient care from NOC RN, Jm. Patient currently sitting up in bed, no signs of distress at this time. Respirations even and unlabored on 8L oxymizer. Safety precautions in place, call light within reach, will continue to monitor q1hr and PRN.
[2020-05-17] MEDS: cefTRIAXone 1GM/50ML D5W 50 ML IV SCH (09:01)
[2020-05-17] MEDS: DexAMETHasone SOD PHOS 10MG/1ML VIAL INJ IV SCH (09:01)
[2020-05-17] MEDS: ZINC SULFATE 220mg CAP or TAB PO SCH (09:02)
[2020-05-17] MEDS: PANTOPRAZOLE 40 MG/10 ML VIAL INJ IV SCH (09:02)
[2020-05-17] MEDS: ASCORBIC ACID 1,000 MG TAB PO SCH (09:02)
[2020-05-17] MEDS: AZITHROMYCIN 500MG/D5WorNS 250ml IV SCH (09:02)
[2020-05-17] MEDS: FLORASTOR (S. BOULARDII) 250 MG CAP PO SCH (09:02)
[2020-05-17] MEDS: CHOLECALCIFEROL (VITD3) 2,000 UNIT CAP PO SCH (09:03)
[2020-05-17] MEDS: ENOXAPARIN SOD 40 MG/0.4 ML SYRINGE SC SCH ×2 (09:03→22:00)
[2020-05-17] MEDS: BUDESONIDE (INHALATION) 180 MCG IH IN SCH ×2 (10:00→22:05)
--- NOTE | 2020-05-17 10:30 | NUR ---
at Station Dr. Humphrey at station discussing patient's plan of care. New orders received.
--- NOTE | 2020-05-17 10:48 | NUR ---
Nutrition Assessment Note please see attached link for complete assessment Est energy needs ABW [id number] kcal (17-20 kcal/kg ABW) Est protein needs 80-88 g (1.0-1.1g/kg ABW) Will monitor and reassess prn Addendum: 05/17/20 at [address] Amended: Links added.
[2020-05-17] MEDS: amLODIPine BESYLATE 5 MG TAB PO SCH (11:01)
[2020-05-17] MEDS: POTASSIUM CHL 20 Meq TABLET PO SCH (11:01)
[2020-05-17] MEDS: FUROSEMIDE 40 MG/4 ML VIAL IV SCH (11:01)
[2020-05-17] MEDS: ALBUTEROL SULF HFA 90MCG INH 200DOSE IN PRN ×2 (12:18→22:05)
--- NOTE | 2020-05-17 16:30 | NUR ---
Received return call from Dr. Humphrey. New orders received, see EMR.
--- NOTE | 2020-05-17 16:39 | NUR ---
Remdesivir Medication administered per orders. Starting BP 128/79 HR 60. Addendum: 05/17/20 at 1654 by JUAN FRANCISCO SANTOYO RN RN 15 minute reassessment: 127/73 HR 58 Addendum: 05/17/20 at 1806 by JUAN FRANCISCO SANTOYO RN RN End: 146/72 HR 58
[2020-05-17] MEDS: REMDESIVIR 100 MG in SODIUM CHL 0.9% 250 ML IV SCH (16:42)
--- NOTE | 2020-05-17 19:30 | NUR ---
Opening Shift Note Assumed care of patient, awake and alert. No S/S of distress/SOB or pain. Instructed on POC and to call for assist PRN, will continue to monitor for changes Q1hr and PRN.
[2020-05-18 05:00] VITALS: BP 125/78
[2020-05-18] MEDS: CHOLESTYRAMINE 4 GM POWDER PO SCH ×4 (05:28→21:42)
[2020-05-18] MEDS: BUDESONIDE (INHALATION) 180 MCG IH IN SCH ×2 (06:12→18:30)
[2020-05-18] MEDS: LEVOTHYROXINE SODIUM 25 MCG TAB PO SCH (06:32)
--- NOTE | 2020-05-18 07:40 | NUR ---
Opening Shift Note Assumed care of patient, awake and alert. No S/S of distress/SOB or pain. Instructed on POC and to call for assist PRN, will continue to monitor for changes Q1hr and PRN. Bed locked in lowest position with two side rails up and call light in reach.
[2020-05-18 08:00] VITALS: BP 118/71
[2020-05-18] MEDS: cefTRIAXone 1GM/50ML D5W 50 ML IV SCH (09:44)
[2020-05-18] MEDS: PANTOPRAZOLE 40 MG/10 ML VIAL INJ IV SCH (09:48)
[2020-05-18] MEDS: FUROSEMIDE 40 MG/4 ML VIAL IV SCH (09:48)
[2020-05-18] MEDS: DexAMETHasone SOD PHOS 10MG/1ML VIAL INJ IV SCH (09:48)
[2020-05-18] MEDS: POTASSIUM CHL 20 Meq TABLET PO SCH (09:49)
[2020-05-18] MEDS: AZITHROMYCIN 500MG/D5WorNS 250ml IV SCH (09:49)
[2020-05-18] MEDS: FLORASTOR (S. BOULARDII) 250 MG CAP PO SCH (09:49)
[2020-05-18] MEDS: ZINC SULFATE 220mg CAP or TAB PO SCH (09:49)
[2020-05-18] MEDS: amLODIPine BESYLATE 5 MG TAB PO SCH (09:49)
[2020-05-18] MEDS: CHOLECALCIFEROL (VITD3) 2,000 UNIT CAP PO SCH (09:50)
[2020-05-18] MEDS: ASCORBIC ACID 1,000 MG TAB PO SCH (09:50)
[2020-05-18] MEDS: ENOXAPARIN SOD 40 MG/0.4 ML SYRINGE SC SCH ×3 (10:00→21:42)
--- NOTE | 2020-05-18 12:10 | NUR ---
DR ANITA GILMORE DISCUSSED THE PLAN OF CARE WITH PATIENT.
[2020-05-18 12:30] VITALS: BP 120/73
[2020-05-18] MEDS: ALBUTEROL SULF HFA 90MCG INH 200DOSE IN PRN (12:37)
[2020-05-18 16:34] VITALS: BP 116/71
[2020-05-18] MEDS: REMDESIVIR 100 MG in SODIUM CHL 0.9% 250 ML IV SCH (17:42)
--- NOTE | 2020-05-18 19:02 | NUR ---
PATIENT RECEVIED LAST DOSE OF REMDESIVIR PATIENT TOLERATED WELL BP FOLLOWED PRE BP 116/71 HR 72 MID BP 129/74 HR 62 POST BP 88/59 HR 72 PATIENT EATINF ASYMPTOMATIC
[2020-05-18 22:00] VITALS: BP 126/62
[2020-05-19] MEDS: ALBUTEROL SULF HFA 90MCG INH 200DOSE IN PRN ×3 (00:36→22:11)
[2020-05-19 05:00] VITALS: BP 138/60
[2020-05-19] MEDS: LEVOTHYROXINE SODIUM 25 MCG TAB PO SCH (05:28)
[2020-05-19] MEDS: CHOLESTYRAMINE 4 GM POWDER PO SCH ×3 (05:31→21:35)
--- NOTE | 2020-05-19 06:34 | NUR ---
END OF SHIFT NOTES WILL ENDORSE CARE TO DAY SHIFT RN ,NO S/S OF DISTRESS OR SOB
[2020-05-19 06:39] LABS: Basophils # (auto) 0 10 ^3/uL (0-0.2); Basophils % (auto) 0.1 % (0.0-2.0); Eosinophils # (auto) 0 10 ^3/uL (0-0.8); Eosinophils % (auto) 0.1 % (0.0-7.0); Monocytes % (auto) 8.6 % (0.0-12.0); Nucleated Red Blood Cells % 0.1 %
[2020-05-19 06:42] LABS: Hematocrit 43.5 % (36.0-46.0); Hemoglobin 14.5 g/dL (12.2-16.2); Lymphocytes # (auto) 1.4 10 ^3/uL (0.4-5.4); Lymphocytes % (auto) 13.1 % (10.0-50.0); Mean Corpuscular Hemoglobin 29.8 pg (28.0-32.0); Mean Corpuscular Hgb Conc. 33.3 g/dL (32.0-36.0); Mean Corpuscular Volume 89.6 fL (80.0-100.0); Monocytes # (auto) 0.9 10 ^3/uL (0-1.3); Neutrophils # (auto) 8.4 10 ^3/uL (1.6-8.6); Neutrophils % (auto) 78.1 % (37.0-80.0); Red Blood Cells 4.86 10^6/uL (4.0-5.20); Red Cell Distribution Width 12.7 % (11.8-14.3); White Blood Cell 10.8 10^3/uL (4.4-10.8)
[2020-05-19] MEDS: BUDESONIDE (INHALATION) 180 MCG IH IN SCH ×2 (06:45→22:11)
[2020-05-19 07:03] LABS: Potassium 3.8 mmol/L (3.5-5.1)
[2020-05-19 07:15] LABS: Platelet Count (auto) 528 10^3/uL (140-450)
[2020-05-19 07:26] LABS: Albumin 2.8 g/dL (3.4-5.0); BUN/Creatinine Ratio 29.1; Bilirubin, Total 0.4 mg/dL (0.2-1.0); Calcium 9.1 mg/dL (8.5-10.1); Total Protein 7.4 g/dL (6.4-8.2)
--- NOTE | 2020-05-19 08:00 | NUR ---
Received pt resting in bed, call light within reach, pt denies any pain or discomfort at this time, will continue to monitor pt.
[2020-05-19 08:48] VITALS: BP 114/73
[2020-05-19] MEDS: amLODIPine BESYLATE 5 MG TAB PO SCH (10:00)
[2020-05-19] MEDS: DexAMETHasone SOD PHOS 10MG/1ML VIAL INJ IV SCH (10:43)
[2020-05-19] MEDS: PANTOPRAZOLE 40 MG/10 ML VIAL INJ IV SCH (10:43)
[2020-05-19] MEDS: cefTRIAXone 1GM/50ML D5W 50 ML IV SCH (10:43)
[2020-05-19] MEDS: CHOLECALCIFEROL (VITD3) 2,000 UNIT CAP PO SCH (10:44)
[2020-05-19] MEDS: ASCORBIC ACID 1,000 MG TAB PO SCH (10:44)
[2020-05-19] MEDS: FLORASTOR (S. BOULARDII) 250 MG CAP PO SCH (10:44)
[2020-05-19] MEDS: ZINC SULFATE 220mg CAP or TAB PO SCH (11:56)
[2020-05-19] MEDS: ENOXAPARIN SOD 40 MG/0.4 ML SYRINGE SC SCH ×2 (11:57→21:36)
--- NOTE | 2020-05-19 12:15 | NUR ---
Dr. Parks at bed side to see pt, doctor discussed the plan of care with pt.
[2020-05-19 13:15] VITALS: BP 121/67
[2020-05-19 17:00] VITALS: BP 97/52
[2020-05-19 21:10] VITALS: BP 120/66
[2020-05-20 05:17] VITALS: BP 110/73
[2020-05-20] MEDS: LEVOTHYROXINE SODIUM 25 MCG TAB PO SCH (06:27)
[2020-05-20] MEDS: ALBUTEROL SULF HFA 90MCG INH 200DOSE IN PRN ×2 (06:50→20:07)
[2020-05-20] MEDS: BUDESONIDE (INHALATION) 180 MCG IH IN SCH ×2 (06:50→20:07)
--- NOTE | 2020-05-20 07:00 | NUR ---
END OF SHIFT NOTES WILL ENDORSE CARE TO DAY SHIFT RN ,NO S/S OF DISTRESS OR SOB
[2020-05-20 08:00] VITALS: BP 114/73
--- NOTE | 2020-05-20 08:00 | NUR ---
ASSESSMENT NOTE PT IS ALERT ORIENTED X4, RESTING IN BED COMFORTABLY, NO DISTRESS NOTED, GENERALIS WEAKNESS NOTED, ABLE TO SELF REPOSITION A ND VERBALIS HER NEEDS, PAIN 0/10, CALL LIGHT WITHIN REACH
[2020-05-20 09:00] VITALS: BP 132/67
[2020-05-20] MEDS: DexAMETHasone SOD PHOS 10MG/1ML VIAL INJ IV SCH (09:07)
[2020-05-20] MEDS: cefTRIAXone 1GM/50ML D5W 50 ML IV SCH (09:07)
[2020-05-20] MEDS: ZINC SULFATE 220mg CAP or TAB PO SCH (09:08)
[2020-05-20] MEDS: FLORASTOR (S. BOULARDII) 250 MG CAP PO SCH (09:08)
[2020-05-20] MEDS: PANTOPRAZOLE 40 MG TAB PO SCH (09:09)
[2020-05-20] MEDS: amLODIPine BESYLATE 5 MG TAB PO SCH (09:09)
[2020-05-20] MEDS: ASCORBIC ACID 1,000 MG TAB PO SCH (09:09)
[2020-05-20] MEDS: CHOLESTYRAMINE 4 GM POWDER PO SCH ×2 (09:09→21:28)
[2020-05-20] MEDS: CHOLECALCIFEROL (VITD3) 2,000 UNIT CAP PO SCH (09:10)
[2020-05-20] MEDS: ENOXAPARIN SOD 40 MG/0.4 ML SYRINGE SC SCH ×2 (09:10→21:28)
--- NOTE | 2020-05-20 09:50 | NUR ---
DR MERAZ AT BED SIDE FOLLOWING UP ON PT, WITH A DISCHARGE PLANING FOR TOMORROW AND REST FOR A WEEK AND KEEP HER DAUGHTER TO LOOK OUT FOR HER
[2020-05-20 13:00] VITALS: BP 104/69
--- NOTE | 2020-05-20 13:00 | NUR ---
LUNCH PT TAKES EATING HER MEALS ON CHAIR AT BED SIDE
--- NOTE | 2020-05-20 14:55 | NUR ---
Nutrition Followup Note Pt wt is 105.7 kg Pt is positive for COVID, in isolation. Pt is with a Cardiac 2gNa diet, appetite is good aeb ave 88% x4 PO intake per RN doc. Est energy needs ABW [id number] kcal (17-20 kcal/kg ABW) Est protein needs 80-88 g (1.0-1.1g/kg ABW) Will monitor and reassess prn LABS: BUN 25 H, ALB 2.8 L GI: Pt had 1 BM on 05/19 per RN doc. BS: 21 low risk. Refer to wound assessment report for further details PES: Altered nutrition related lab value r/t current chronic medical condition aeb hyperglycemia, hypocalcemia Decreased nutrient needs r/t adiposity aeb pt`s high BMI of 42.5 kgm2 Malnutrition related to morbid BMI> or equal to 40 Malnutrition related to morbid obesity Yes Comments Will continue to monitor PO status, skin status, pertinent labs and weight trends. Will f/u in 3-5 days 1) refer to OPD dietitian on DC 2) continue current plan of care 3) advance diet as medically feasible 4) consider Prostat 1 packet bid if alb trends down
[2020-05-20 16:57] VITALS: BP 117/69
--- NOTE | 2020-05-20 18:03 | NUR ---
PT CONTINUE STABLE, EATING DINNER AT BED SIDE, CONTINUE MONITORING
[2020-05-20 22:55] VITALS: BP 110/73
[2020-05-21 05:00] VITALS: BP 119/74
[2020-05-21] MEDS: LEVOTHYROXINE SODIUM 25 MCG TAB PO SCH ×2 (06:10→09:32)
--- NOTE | 2020-05-21 06:49 | NUR ---
END OF SHIFT NOTES WILL ENDORSE CARE TO DAY SHIFT RN ,NO S/S OF DISTRESS OR SOB
[2020-05-21 08:00] VITALS: BP 114/73
[2020-05-21] MEDS: cefTRIAXone 1GM/50ML D5W 50 ML IV SCH (09:29)
[2020-05-21] MEDS: ZINC SULFATE 220mg CAP or TAB PO SCH (09:29)
[2020-05-21] MEDS: FLORASTOR (S. BOULARDII) 250 MG CAP PO SCH (09:30)
[2020-05-21] MEDS: amLODIPine BESYLATE 5 MG TAB PO SCH (09:30)
[2020-05-21] MEDS: PANTOPRAZOLE 40 MG TAB PO SCH (09:30)
[2020-05-21] MEDS: CHOLESTYRAMINE 4 GM POWDER PO SCH (09:31)
[2020-05-21] MEDS: CHOLECALCIFEROL (VITD3) 2,000 UNIT CAP PO SCH (09:31)
[2020-05-21] MEDS: ASCORBIC ACID 1,000 MG TAB PO SCH (09:31)
[2020-05-21] MEDS: ENOXAPARIN SOD 40 MG/0.4 ML SYRINGE SC SCH (09:32)
[2020-05-21] MEDS: BUDESONIDE (INHALATION) 180 MCG IH IN SCH (10:00)
[2020-05-21] MEDS ORDERED: DexAMETHasone 4 MG TAB PO SCH (10:00)
[2020-05-21 13:00] VITALS: BP 124/80
[2020-05-21 13:31] VITALS: BP 118/53
--- NOTE | 2020-05-21 15:36 | NUR ---
IV DISCONTINUED, CATHETER INTACT. PATIENT PRESCRIPTION FAXED TO PHARMACY TO BE FILLED.
--- NOTE | 2020-05-21 17:05 | NUR ---
PATIENT TELE BOX RETURNED TO MONITOR TECHS. PATIENT TAKEN DOWN WITH OXYGEN TO FAMILY. FAMILY WAS PRESENT WITH OXYGEN.
== END 2020-05-21 17:05 | disposition home or self-care (01) | DRG 177 ==
LOC: ER 15:21 → TELE 15:22 → TELE-CENTR 23:21
PROVIDERS: ADMIT Nurse Practitioner Acute Care; ATTEND Internal Medicine
PROC: XW033E5 Introduction of Remdesivir Anti-infective into Peripheral Vein, Percutaneous Approach, New Technology Group 5 (ICD-10-PCS; 2020-05-14)
PROC: XW13325 Transfusion of Convalescent Plasma (Nonautologous) into Peripheral Vein, Percutaneous Approach, New Technology Group 5 (ICD-10-PCS; principal; 2020-05-16)
DX: U07.1 COVID-19 (principal); J12.89 Other viral pneumonia; J96.01 Acute respiratory failure with hypoxia; Z68.41 Body mass index [BMI] 40.0-44.9, adult; E66.01 Morbid (severe) obesity due to excess calories; E03.9 Hypothyroidism, unspecified; I10 Essential (primary) hypertension; Z80.0 Family history of malignant neoplasm of digestive organs; Z79.82 Long term (current) use of aspirin; Z90.49 Acquired absence of other specified parts of digestive tract; Z98.51 Tubal ligation status
CPT/HCPCS: 36415; 71045; 74176; 80048; 80053; 81001; 82728; 83605; 83615; 83690; 83735; 84443; 85025; 85379; 86141; 86850; 86900; 86901; 87081; 87426; 87493; 87804; 94640; 97163; 99291; C9113; G0378; J0696; J1100; J2405; J3490